=== PATIENT | female | born 1990 | race Caucasian/White ===

== ENCOUNTER 2020-08-05 10:44 | Outpatient (CLI) | payer OTHER, SELFPAY ==
[2020-08-05 12:55] VITALS: BP 105/74; PULSE 91
== END 2020-08-05 13:06 | disposition home or self-care (01) ==
LOC: ANHOBOP 12:41 → ANHLDR 12:42
PROVIDERS: PCP Family Medicine; Visit Provider Obstetrics & Gynecology
DX: O41.8X90 Other specified disorders of amniotic fluid and membranes, unspecified trimester, not applicable or unspecified (principal); Z3A.00 Weeks of gestation of pregnancy not specified
CPT/HCPCS: 59025; 99199

== ENCOUNTER 2020-08-08 06:30 | Inpatient (IN) | payer OTHER, SELFPAY ==
[2020-08-08] VITALS (20 sets, daily range): BP systolic 103–125; BP diastolic 56–80; PULSE 62–137; RESP 17–18; TEMP 36.3–37.4; O2SAT 100; BMI 29.9
--- NOTE | 2020-08-08 06:30 | LDADM ---
This patient, Franci Barrow, was admitted to Labor/Delivery/Recovery 106 on 08/08/20 at 06:30. Plans for labor, pain management and were discussed with patient. Patient/family oriented to hospital policies and general routines including ID bracelet, bed and alarms, visiting hours, pain management, procedures, bathroom and other care routines, personal items, smoking policy, room service/diet and guest tray routines, security routines, and visiting hours. Patient/Family are encouraged to report perceived risks to care and to ask questions if they do not understand what they are told or what they should do. See OBIX for further documentation.
[2020-08-08 07:31] LABS: Basophils Percent Auto 0.5 % (0.2-1.2); Eosinophils Percent Auto 0.7 % (0-4.4); Hematocrit 38.3 % (37.0-47.0); Hemoglobin 13.2 g/dL (12.0-15.0); Immature Granulocyte Absolute 0.04 K/mm3 (0.00-0.031); Immature Granulocyte Percent A 0.7 % (0-0.5); Lymphocytes Absolute Auto 1.33 K/mm3 (0.9-3.2); Mean Corpuscular HGB Conc 34.5 g/dl (32-36); Monocytes Absolute Auto 0.4 K/mm3 (0.1-0.6); Monocytes Percent Auto 6.5 % (2.6-8.5); Neutrophils Absolute Auto 4.2 K/mm3 (1.3-6.7); Neutrophils Percent Auto 69.6 % (45.5-73.1); Platelet Count Result 212 k/mm3 (150-375); Red Blood Count 4.12 M/mm3 (4.2-5.4); Red Cell Distribution Width 12.6 % (11.5-14.5)
[2020-08-08] MEDS: LACTATED RINGERS 1,000 ML 125 ML IV CONT (07:37)
[2020-08-08] MEDS: OXYTOCIN 30 UNITS/NS 500 ML 30 UNITS/500 ML BAG IV CONT (07:37)
--- NOTE | 2020-08-08 08:47 | WPDOBADMIT ---
Obstetrics - Admit Note Admission Note: record reviewed. Additions to the history and/or subsequent changes in the physical findings follow. 30 y/o at 39 weeks here for induction of labor. GBS neg. Prior baby weighed 7#11oz and was delivered by VAVD, complicated by shoulder dystocia. EFW 4 weeks ago 5#15oz by ultrasound. We have reviewed risks associated with vaginal delivery, induction of labor, and primary . She desires induction of labor today. AVSS NST reactive TOCO: contractions every 2-4 min ABD soft, nontender, gravid, vertex EXT nontender Cervix 4/50/-2. AROM with clear fluid. Vertex. A: IUP at term with favorable cervix, desiring induction. P: Oxytocin. Anticipate .
--- NOTE | 2020-08-08 12:28 | P.PCNOB_ITS ---
OB - Delivery Note Procedure Delivery date: 08/08/20 Procedure: Induction of labor with Induction method: AROM and per pitocin protocol Delivery monitor: external FHT and external uterine Route of delivery: Delivery repair: vicryl (3-0) Specimen: Yes (cord blood) Quantitative Blood Loss (ml): 175 Anesthesia type: Local (1% lidocaine) Disposition: PACU Complications: None Narrative: 30 y/o at 39 weeks gestation who presented to the hospital for induction of labor. Oxytocin was administered intravenously. Amniotomy was performed with return of clear fluid. She received an epidural for pain control. Her labor progressed and her cervix dilated completely. She pushed with good effort and delivered the infant's head to the perineum, followed by the body. The nose and mouth were bulb suctioned. After a delay, the cord was clamped and cut. The was handed off the field. Cord blood was collected. The placenta delivered spontaneously and was grossly normal in appe arance. The usual 3 vessel cord was noted. A distal vaginal laceration was sustained. This was reapproximated using 3 0 Vicryl in the usual layered fashion. Excellent hemostasis resulted as did excellent reapproximation of the normal anatomy. Needle and instrument counts were correct. The patient was taken to recovery room in stable condition. The infant went to the nursery in stable condition. I was present and scrubbed for the entire delivery. [place] Baby Date of : 08/08/20 Time of : 12:04 Weeks of gestation at delivery: 39 Infant gender: Male Weight (pounds): 8 Weight (ounces): 7 presentation: vertex position: Left Occiput Anterior Placenta delivery description: Spontaneous and Normal Configuration cord vessel description: 3 Vessels and Delayed Cord Clamping score one minute: 8 score five minutes: 9
[2020-08-08] MEDS: OXYTOCIN 30 UNITS/NS 500 ML 30 UNITS/500 ML BAG 125 UNITS IV CONT (12:40)
[2020-08-08] MEDS: WITCH HAZEL 40 PADS 1 PAD TOPICAL (13:45)
[2020-08-08] MEDS: BENZOCAINE 20% AER SPR (*SP) 56 GM CAN 1 SPRAY TOPICAL (13:45)
[2020-08-08] MEDS: IBUPROFEN 600 MG TABLET PO (13:45)
[2020-08-08] MEDS: ACETAMINOPHEN 325 MG TABLET 650 MG PO (17:58)
[2020-08-09] MEDS: IBUPROFEN 600 MG TABLET PO ×3 (00:35→19:30)
[2020-08-09 05:53] LABS: Hematocrit 30.2 % (37.0-47.0); Hemoglobin 10.4 g/dL (12.0-15.0)
[2020-08-09 07:04] LABS: Rapid Plasma Reagin Non-Reactive (NonReactive)
[2020-08-09] MEDS: MULTIVIT/MIN/PREN/FOL AC/IRON TABLET 1 TAB PO (08:02)
[2020-08-09] MEDS: DOCUSATE SODIUM 100 MG CAPSULE PO (08:02)
[2020-08-09 08:20] VITALS: BP 95/60; PULSE 94; RESP 18; TEMP 36.7; O2SAT 98
--- NOTE | 2020-08-09 12:43 | PM.OBPNVD ---
OB - PN: Subj Subjective Date/time seen: 08/09/20 12:43 Narrative: Pain OK. OB - PN: Obj Data Labs CBC & Chem 7: 08/09/20 05:13 Labs: Laboratory Results - last 24 hr 08/08/20 08/09/20 07:22 05:13 Hgb 10.4 L Hct 30.2 L RPR Non-reactive OB - PN A/P Plan Comments: A: PPD#1, doing well. P: Routine care. Exam Psych: Other: AVSS ABD soft, nontender, fundus firm EXT nontender
--- NOTE | 2020-08-09 12:43 | PM.OBDSVD ---
DS: Admitting Diagnosis Admitting Diagnosis Admitting Diagnosis: IUP at 39 weeks Favorable cervix DS: Discharge Diagnosis Discharge Diagnosis (1) (normal spontaneous vaginal delivery): Code(s): O80 - Encounter for full-term uncomplicated delivery Status: Acute OB - DS: Summary OB Procedures : None OB Procedures Intrapartum: Spontaneous Vag Delivery OB Procedures: : None Time Spent with Patient Time attestation: Total time spent providing and/or coordinating discharge services: DS: Data Data Completed and Pending Labs on day of discharge: Labs from last 24 hours 08/09/20 08/08/20 05:13 07:22 Hgb 10.4 L Hct 30.2 L RPR Non-reactive Discharge Plan Discharge Attending physician on discharge: Eddy Gong Discharging Clinician: Eddy Gong Patient Disposition: Home, Self-Care Activity: pelvic rest Diet: regular Discharge Instructions: Call or return if temperature above 100.4? F, increased abdominal pain, increased vaginal bleeding or any new problems. Stand Alone Forms: General Discharge Information Follow-up/Referrals: Eddy Gong MD [Physician] - 6 Weeks Discharge Medications: New ibuprofen 600 mg tablet 600 mg PO Q6H PRN (Reason: cramps) Qty: 30 RF: 0 No Action aspirin [Adult Low Dose Aspirin] 81 mg tablet,delayed release (DR/EC) 81 mg PO DAILY RF: 0 PNV cmb#95-ferrous fumarate-FA [] 28 mg iron- 800 mcg Tablet 1 tablet PO DAILY RF: 0 Adult Probiotic 3 billion cell Capsule 3,000 mmu cells PO DAILY RF: 0 levothyroxine 88 mcg tablet 88 mcg PO DAILY Qty: 90 RF: 3 Date of admission: 08/08/20 06:30 Primary Care Provider: Jewel Cooper Admitting Provider: Eddy Gong Attending physician on admission: Eddy Gong Condition: Stable
--- NOTE | 2020-08-09 13:53 | PC.NURSE ---
Consulted with patient, reviewed feeding cues, frequencies, duration of feedings, feeding elimination flow sheet, and signs of adequate intake. Demonstrated stimulation techniques to wake for feeding. watched mom latch infant to breast. Reviewed positioning/alignment, holding breast and asymmetrical latch on. Infant was able to latch correctly. nursed eagerly, with steady draws and frequent swallowing noted. Reviewed signs of a correct latch, effective nursing and suck swallow ratio. was able to maintain latch without discomfort to mother. Nipple care reviewed. Instructed mother to call out for RN assistance if she is unable to latch infant for feeding or she has discomfort with nursing. Instructed feeding should be initiated three hours from start of last feeding or if feeding cues are noted before. Mother voiced understanding of information shared.
[2020-08-09 20:25] VITALS: BP 102/69; PULSE 79; RESP 20; TEMP 36.4; O2SAT 98
[2020-08-10] MEDS: IBUPROFEN 600 MG TABLET PO ×2 (02:32→09:09)
[2020-08-10] MEDS: WITCH HAZEL 40 PADS 1 PAD TOPICAL (03:47)
[2020-08-10 08:45] VITALS: BP 108/68; PULSE 90; RESP 18; TEMP 37.1; O2SAT 100
--- NOTE | 2020-08-10 08:52 | PM.OBPNVD ---
OB - PN: Subj Subjective Date/time seen: 08/10/20 08:52 Narrative: Pain OK. Would like to go home. OB - PN: Obj Data Labs CBC & Chem 7: 08/09/20 05:13 OB - PN A/P Plan Comments: A: PPD#2, doing well. P: Home to f/u 6 weeks. Exam Psych: Other: AVSS ABD soft, nontender, fundus firm EXT nontender
[2020-08-10] MEDS: BENZOCAINE 20% AER SPR (*SP) 56 GM CAN 1 SPRAY TOPICAL (09:09)
[2020-08-10] MEDS: DOCUSATE SODIUM 100 MG CAPSULE PO (09:09)
[2020-08-10] MEDS: MULTIVIT/MIN/PREN/FOL AC/IRON TABLET 1 TAB PO (09:09)
--- NOTE | 2020-08-10 11:29 | PC.NURSE ---
Mother verbalizes she is able to independently latch with appropriate positioning/alignment. She denies any nipple discomfort, is feeding as required and waking to feed if needed. Infant has had 10 effective feedings in the past 24 hours, and is currently meeting outcomes for weight, output, jaundice and feeding frequencies. Will continue to monitor for more stools. Mother states she feels confident to continue effective at home. Reviewed transition to breast milk, signs of adequate intake, and engorgement/relief. Encouraged mom to put infant to breast as much as infant desires to assist in milk coming in and decreasing jaundice. Instructed to call ICP if intake/output less than required. Information provided per [facility]. Reviewed community resources on the [facility] website and in the Mom/Baby guide. Information on outpatient services provided. Mother has no further questions at this time.
[2020-08-11 08:34] VITALS: BP 116/80; PULSE 80; RESP 16; TEMP 37.1; O2SAT 98
== END 2020-08-10 12:15 | disposition home or self-care (01) | DRG 807 ==
LOC: ANHLDR 06:34 → ANHOB2 15:19
PROVIDERS: Admitting Provider Obstetrics & Gynecology; PCP Family Medicine; Visit Provider Obstetrics & Gynecology
DX: O71.4 Obstetric high vaginal laceration alone (principal); Z37.0 Single live birth; Z3A.39 39 weeks gestation of pregnancy
CPT/HCPCS: 36415; 59025; 85014; 85018; 85025; 86592; 86850; 86900; 86901; 99199; A9270; J2590; J7120

== ENCOUNTER → 2021-01-05 06:37 | Outpatient (CLI) | payer OTHER, SELFPAY ==
[2021-01-05 18:15] LABS: SARS-CoV-2 RNA PCR Negative
== END ==
PROVIDERS: PCP Family Medicine; Visit Provider Family Medicine
DX: Z20.822 Contact with and (suspected) exposure to COVID-19 (principal); R09.89 Other specified symptoms and signs involving the circulatory and respiratory systems
CPT/HCPCS: C9803; U0003; U0005